=== PATIENT | female | born 1975 | race Caucasian/White ===

== ENCOUNTER → 2021-05-27 | Outpatient (CLI) | payer MEDICAID | LOC: M.RAD 12:56 | PROVIDERS: ATTEND Registered Nurse Emergency | DX: Z12.31 Encounter for screening mammogram for malignant neoplasm of breast (principal); N63.10 Unspecified lump in the right breast, unspecified quadrant; N63.20 Unspecified lump in the left breast, unspecified quadrant ==

== ENCOUNTER → 2021-06-06 | Outpatient (CLI) | payer MEDICAID | LOC: M.ULTRA 12:40 | PROVIDERS: ATTEND Registered Nurse Emergency | DX: N63.12 Unspecified lump in the right breast, upper inner quadrant (principal) ==

== ENCOUNTER → 2021-06-10 | Outpatient (CLI) | payer MEDICAID ==
--- NOTE | 2021-06-10 16:06 | EXE ---
[place] [address] STRESS ECHOCARDIOGRAM Name: ELLIE RG Room: [facility]#: [id number] Admission: 06/10/21 Attend Phys: CAMILA Rey Discharge: Date of : 73 Date of Service: 06/10/21 1606 Report #: [id number] THIS REPORT FOR: cc: Naomy Leyva Karmen RNP Blick, David R. MD [facility] ~ APPROVED REPORT Study performed: 06/10/2021 16:14:15 Exam: Stress Echocardiogram Indication: Chest pain Patient Location: Out-Patient Stress Nurse: Mary Garrido RN Supervising Physician: Isaiah Nguyen MD Ht: 5 ft 3 in HR: 59 bpm BP: 133/85 mmHg Medical History Cardiac Risk Factors: Tobacco History (Current/Recent), FHX of CAD Procedure The patient underwent an Exercise Stress Test using the Dain Protocol. Blood pressure, heart rate, and EKG were monitored. An Echocardiogram was performed by site damage prevention technician in four stages in quad fashion. At peak stress, four selected images were obtained and placed side by side with resting images for comparison. Stress Test Details Stress Test: Exercise stress testing was performed using a Dain protocol. HR Resting HR: 59 bpm Max Heart Rate (APMHR): 173 bpm Max HR Achieved: 138 bpm Target HR (85% APMHR): 147 bpm % of APMHR: 79 Recovery HR: 66 bpm HR response to stress: Normal HR response to stress BP Resting BP: 133/85 mmHg Max BP: 212/87 mmHg Recovery BP: 135/[place] [address] STRESS ECHOCARDIOGRAM Name: ARCENIODESTIN KITCHENE Jeffrey Room: [facility]#: [id number] Admission: 06/10/21 Attend Phys: CAMILA Rey Discharge: Date of : 73 Date of Service: 06/10/21 1606 Report #: [id number] BP response to stress: Normal blood pressure response to stress. ECG Resting ECG: Sinus Rhythm Stress ECG: Sinus Rhythm, nonspecific ST-T abnormalities ST Change: Upsloping ST depression Maximum ST Deviation: 1 mm Arrhythmia: None Recovery ECG: Sinus Rhythm, nonspecific ST-T abnormalities Recovery ST Change: Upsloping ST depression Recovery ST Deviation: 1 mm Recovery Arrhythmia: None Clinical Reason for Termination: Dyspnea, Maximal effort Exercise duration: 9 min 02 sec Highest Stage Achieved: Stage 3: 3.4 mph at 14% grade. Exercise capacity: 10.16 METs Pre-Stress Echo The resting Echocardiogram showed normal left ventricular contractility with an estimated Ejection Fraction of about 55-60%. The resting echocardiogram demonstrated normal wall motion in all wall segments. Post-Stress Echo The stress Echocardiogram showed normal left ventricular contractility with an estimated Ejection Fraction of about 65-70%. Compared to rest, there were no stress-induced wall motion abnormalities. Conclusion Clinical Response: Non-ischemic Exercise Capacity: Average Stress ECG Response: Equivocal Stress Echo Images: Non-ischemic Indeterminate stress echo for predicting future cardiac events secondary to inability to achieve target heart rate. Other Information Study Quality: Good <Conclusion> [place] [address] STRESS ECHOCARDIOGRAM Name: ELLIE RG Room: [facility]#: [id number] Admission: 06/10/21 Attend Phys: CAMILA Rey Discharge: Date of : 73 Date of Service: 06/10/211605 Report #: [id number] Indeterminate stress echo for predicting future cardiac events secondary to inability to achieve target heart rate. <ELECTRONICALLY SIGNED> By: Isaiah Nguyen MD, FACC 06/10/211605 05 05 Isaiah Nguyen MD, FACC /INF
== END ==
LOC: M.RAD 05-06 14:35 → EDUNIT# 05-27 13:20 → M.CRD 06-05 15:00
PROVIDERS: ATTEND Registered Nurse Emergency
DX: R07.89 Other chest pain (principal)